=== PATIENT | male | born 1990 | race Caucasian/White ===

== ENCOUNTER 2019-08-14 10:48 | Emergency (ER) | payer MEDICAID ==
[~2019-08-14] VITALS: Ht 177.8 cm; Wt 94.0 kg
[2019-08-14 12:12] VITALS: BP 121/66
== END 2019-08-14 12:05 | disposition home or self-care (01) ==
LOC: ER 10:49
DX: S60.211A Contusion of right wrist, initial encounter (principal); V00.131A Fall from skateboard, initial encounter; Y93.89 Activity, other specified; Y92.89 Other specified places as the place of occurrence of the external cause; Y99.8 Other external cause status
CPT/HCPCS: 29125; 73110; 73130; 99284